=== PATIENT | male | born 1940 | race Caucasian/White ===

== ENCOUNTER 2020-09-25 16:28 | Emergency (ER) | payer MEDICARE ==
[~2020-09-25] VITALS: Ht 165.1 cm; Wt 83.9 kg
[~2020-09-25 16:28] MED LIST: FLOMAX0.4 MG PO; HYDROCODON-ACE1 EAC7 PO; PROSCAR 5MG TABL5 MG PO
[2020-09-25] MEDS ORDERED: FLEXERIL PO (17:29)
[2020-09-25 17:38] VITALS: BP 149/79
== END 2020-09-25 17:39 | disposition home or self-care (01) ==
LOC: M.ERS 16:28
DX: T83.098A Other mechanical complication of other urinary catheter, initial encounter (principal); M62.830 Muscle spasm of back; M54.41 Lumbago with sciatica, right side; N40.0 Benign prostatic hyperplasia without lower urinary tract symptoms; Z90.49 Acquired absence of other specified parts of digestive tract; Z88.5 Allergy status to narcotic agent; Z88.8 Allergy status to other drugs, medicaments and biological substances; Y84.8 Other medical procedures as the cause of abnormal reaction of the patient, or of later complication, without mention of misadventure at the time of the procedure; Y92.89 Other specified places as the place of occurrence of the external cause

== ENCOUNTER → 2020-10-22 | Outpatient (CLI) | payer MEDICARE ==
[~2020-10-22] MED LIST changes: +FLEXERIL PO
== END ==
LOC: M.LAB 10:42
PROVIDERS: ATTEND Urology
DX: Z01.812 Encounter for preprocedural laboratory examination (principal); Z20.822 Contact with and (suspected) exposure to COVID-19

== ENCOUNTER → 2020-10-27 | Day surgery (SDC) | payer MEDICARE ==
--- NOTE | ~2020-10-27 | OP ---
[address] [address] OPERATIVE REPORT Name: ANGELICA ADORNO Room: [facility].#: [id number] Admission: 10/27/20 Attend Phys: Enrico Kim III Discharge: Date of : 40 Report #: [id number] THIS REPORT FOR: cc: FAM - No family physician/PCP FAM - No family physician/PCP ~ João Morales III, MD PROCEDURE: Cystoscopy with suprapubic tube placement. PREOPERATIVE DIAGNOSIS: Urinary retention. POSTOPERATIVE DIAGNOSIS: Urinary retention. SURGEON: João Morales MD ANESTHESIA: General. 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 DESCRIPTION OF PROCEDURE: After informed consent was obtained, the patient was brought to the operating room, was placed supine on the operating table. General anesthesia was induced and airway was secured. Preoperative antibiotics were administered. The patient's lower abdomen and external genitalia were then prepped and draped in standard sterile fashion. A time-out was taken to verify the correct patient and procedure. Flexible cystoscope was introduced into the bladder, which was notable for some bullous edema along the trigone and dome consistent with catheter-related trauma. The prostatic urethra was examined and notable for severe trilobar prostatic hypertrophy. There did not appear to be any other concerning tumors, areas of erythema, foreign bodies, or calculi. The bladder dome was examined and using a 14-gauge Angiocath needle, the bladder was aspirated in a position 3 fingerbreadths above the pubic bone. The introducer was removed and a Super Stiff guidewire was advanced through the Angiocath and seen to curl within the bladder under direct vision. The Angiocath was removed and a 30-Estonian NephroMax balloon was advanced over the Super Stiff wire and was seen within the bladder lumen. Balloon was inflated and then the access sheath was advanced over the dilating balloon. The dilating balloon was deflated and a 20-Estonian Councill tip catheter was then advanced through the sheath and into the bladder. 10 mL of sterile water was instilled into the catheter balloon. The catheter was brought to rest along the bladder dome. The access sheath was cut and removed. The suprapubic tube was then secured in place using a 2-0 nylon suture. Local anesthesia using 0.5% Marcaine [place] [address] OPERATIVE REPORT Name: ANGELICA ADORNO Room: [facility]#: [id number] Admission: 10/27/20 Attend Phys: Enrico Kim III Discharge: Date of : 40 Report #: [id number] sterile dressing was applied. The patient was then awoken from anesthesia and taken to PACU in stable condition. There were no immediate complications. By: 1125 [id number] Morales III, MD /eugene
[2020-10-27 09:20] LABS: HEMOGLOBIN 12.2 gm/dL (14.0-18.0); MCHC 33.9 g/dL (28.0-37.0); MCV 88.5 fL (80.0-100.0); MPV 7.4 fl. (7.2-11.1); RBC 4.07 mil/uL (4.50-6.00); RDW-CV 15.4 % (10.5-14.5); WBC 6.1 thou/uL (4.0-11.0)
[2020-10-27 09:29] LABS: CALCIUM 9.1 mg/dL (8.5-10.1); CREATININE 1.2 mg/dL (0.6-1.3); POTASSIUM 4.3 mmol/L (3.5-5.1)
[2020-10-27 09:34] LABS: ALBUMIN 3.7 g/dL (3.4-5.0); TOTAL BILIRUBIN 0.7 mg/dL (<0.1-1.0); TOTAL PROTEIN 7.3 g/dL (6.4-8.2)
--- NOTE | 2020-10-27 13:04 | EKG ---
[place] [address] ELECTROCARDIOGRAM REPORT Name: ANGELICA ADORNO Room: [facility]#: [id number] Admission: 10/27/20 Attend Phys: João Morales III Discharge: Date of : 40 Date of Service: 10/27/20919 Report #: [id number] THIS REPORT FOR: //name// [facility] Test Date: 2020-10-27 Test Time: 09:20:39 Pat Name: ANGELICA ADORNO Department: Room: Gender: Frame Wirer: : 1940 Requested By: João Morales Order Number: [id number] Whit MD: Michael Morris Measurements Intervals [place] Rate: 61 P: 33 WV: 148 QRS: -20 QRSD: 150 T: 123 QT: 450 QTc: 454 Interpretive Statements Sinus rhythm Left bundle branch block Compared to ECG 09/10/2020 14:10:03 Sinus arrhythmia no longer present Electronically Signed On 10-27-2020 13:04:19 CDT by Michael Morris [email or web address] <ELECTRONICALLY SIGNED> By: Michael Morris MD, [facility] 10/27/20 1304 9 9 Michael Morris MD, [facility] /EPI
== END | disposition home or self-care (01) ==
LOC: M.SUR 05:20
PROVIDERS: ATTEND Urology
DX: R33.9 Retention of urine, unspecified (principal); R10.9 Unspecified abdominal pain; N40.0 Benign prostatic hyperplasia without lower urinary tract symptoms; Z98.890 Other specified postprocedural states; Z79.899 Other long term (current) drug therapy; Z90.49 Acquired absence of other specified parts of digestive tract

== ENCOUNTER 2020-10-31 03:22 | Emergency (ER) | payer MEDICARE ==
[~2020-10-31] VITALS: Ht 165.1 cm; Wt 80.3 kg
[2020-10-31 04:15] VITALS: BP 155/61
== END 2020-10-31 04:15 | disposition home or self-care (01) ==
LOC: M.ERS 03:22
DX: T83.098A Other mechanical complication of other urinary catheter, initial encounter (principal); N40.0 Benign prostatic hyperplasia without lower urinary tract symptoms; Z88.5 Allergy status to narcotic agent; Z88.8 Allergy status to other drugs, medicaments and biological substances; Z90.49 Acquired absence of other specified parts of digestive tract; Y84.8 Other medical procedures as the cause of abnormal reaction of the patient, or of later complication, without mention of misadventure at the time of the procedure; Y92.89 Other specified places as the place of occurrence of the external cause

== ENCOUNTER 2020-12-28 20:14 | Inpatient (IN) | payer MEDICARE ==
[~2020-12-28] VITALS: Ht 152.4 cm; Wt 76.6 kg
[2020-12-28 20:21] VITALS: BP 150/58
[2020-12-28 20:45] LABS: HEMATOCRIT 41.7 % (42.0-52.0); HEMOGLOBIN 14.9 gm/dL (14.0-18.0); MCH 30.1 pg (26.0-34.0); MCHC 35.7 g/dL (28.0-37.0); MCV 84.3 fL (80.0-100.0); MPV 7.8 fl. (7.2-11.1); NUCLEATED RBCS 0 /100WBC; PLATELET COUNT* 213 thou/uL (150-400); RBC 4.95 mil/uL (4.50-6.00); RDW-CV 13.7 % (10.5-14.5); WBC 5.6 thou/uL (4.0-11.0)
[2020-12-28 20:53] LABS: CALCIUM 8.8 mg/dL (8.5-10.1); CREATININE 1.7 mg/dL (0.6-1.3); POTASSIUM 3.4 mmol/L (3.5-5.1)
[2020-12-28 21:01] LABS: ABSOLUTE EOSINOPHILS 0.1 thou/uL (0.0-0.7); ABSOLUTE LYMPHOCYTES 0.3 thou/uL (0.8-5.3); ABSOLUTE MONOCYTES 0.1 thou/uL (0.0-1.2); ABSOLUTE NEUTROPHILS 5.2 thou/uL (1.6-8.1); PLATELET ESTIMATE ADEQUATE
[2020-12-28 21:02] LABS: INR 1.1; PROTIME 11.7 Seconds (9.20-11.50)
[2020-12-28 21:04] LABS: ALBUMIN 3.2 g/dL (3.4-5.0); MAGNESIUM 2.3 mg/dL (1.8-2.4); TOTAL BILIRUBIN 0.8 mg/dL (<0.1-1.0); TOTAL PROTEIN 7.3 g/dL (6.4-8.2)
[2020-12-28 23:31] LABS: URINE BILIRUBIN NEGATIVE (Negative); URINE BLOOD 3+ (Negative); URINE CLARITY SL CLOUDY; URINE COLOR YELLOW; URINE GLUCOSE-RANDOM NEGATIVE (Negative); URINE KETONES 1+ (Negative); URINE LEUKOCYTES-REFLEX 1+ (Negative); URINE PROTEIN 3+ (Negative); URINE SPECIFIC GRAVITY 1.025 (1.005-1.030)
[2020-12-28 23:32] LABS: URINE NITRITE-REFLEX POSITIVE (Negative)
[2020-12-29] VITALS (7 sets, daily range): BP systolic 93–167; BP diastolic 37–64
[2020-12-29 00:16] LABS: CASTS None Seen /LPF (None Seen); SQUAMOUS 0-3 Few /LPF (0-3)
[2020-12-29 00:18] LABS: URINE RBC >20 Many /HPF (0-2)
[2020-12-29 00:19] LABS: AMORPHOUS URATES Moderate /LPF (None Seen); BACTERIA-REFLEX >30 Many /HPF (None Seen)
--- NOTE | 2020-12-29 06:14 | NUR ---
PT DAUGHTER ---- PIERCE ADORNO [phone]
--- NOTE | 2020-12-29 12:32 | EKG ---
[place] [address] ELECTROCARDIOGRAM REPORT Name: TILAANGELICA Room: [place] [address] ADM IN ..#: [id number] Admission: 12/28/20 Attend Phys: Saba Reyez Discharge: Date of : 40 Date of Service: 12/28/202024 Report #: [id number] THIS REPORT FOR: //name// [facility] ED Test Date: 2020-12-28 Test Time: 20:25:48 Pat Name: ANGELICA ADORNO Department: Room: [facility] Gender: M Observer Helper: DANIELLE : 1940 Requested By: Lindsay See Order Number: [id number] MD: Michael Morris Measurements Intervals [place] Rate: 88 P: 43 MI: 147 QRS: -19 QRSD: 149 T: 113 QT: 383 QTc: 464 Interpretive Statements Sinus rhythm Probable left atrial enlargement Left bundle branch block Compared to ECG 10/27/2020 09:20:39 No significant changes Electronically Signed On 12-29-2020 12:32:02 CDT by Michael Morris [email or web address] <ELECTRONICALLY SIGNED> By: Michael Morris MD, [facility] 12/29/20 1232 24 24 Michael Morris MD, [facility] /EPI
--- NOTE | 2020-12-29 14:05 | NUR ---
PT GIVEN CLEAR LIQUID LUNCH TRAY AND REPOSITIONED HIMSELF IN BED. PT SWEATING, NO FEVER. PT DENIES ANY FURTHER CURRENT NEEDS AT THIS TIME.
--- NOTE | 2020-12-29 17:13 | NUR ---
PT'S DAUGHTER, PIERCE ADORNO, GIVEN UPDATE ON PT'S STATUS OVER PHONE AT THIS TIME.
--- NOTE | 2020-12-29 18:15 | NUR ---
er admit to rm 200 via bed telephone report given prior to arrival patient oriented to rm and cqall light denies pain
[2020-12-30 00:09] VITALS: BP 149/62
[2020-12-30 03:07] VITALS: BP 139/60
--- NOTE | 2020-12-30 03:46 | NUR ---
PT WANTS TO GET UP AND WALK AROUND, REMINDED HIM SEVERAL TIMES WE CANNOT LEAVE THE ROOM. HE STANDS UP AT BEDSIDE AND GETS TIRED QUICKLY, HE IS A UP WITH 1 ASSIST. HE IS NOW ON 2LO2. ON ROOM AIR HE WAS 85-88% ON 2L AROUND 93%. HE IS ALERT AND ORIENTED. 250 ML OF DARK YELLOW URINE OUT OF PACHECO THIS MORNING. NO REPORTS OF ANY PAIN, NAUSEA OR VOMITING. HE STATED HE FEELS IF HE IS GETTING WORSE. I ENCOURAGED HIM TO KEEP HEAD ELEVATED
[2020-12-30 05:52] LABS: HEMATOCRIT 38.6 % (42.0-52.0); HEMOGLOBIN 13.8 gm/dL (14.0-18.0); MCH 29.7 pg (26.0-34.0); MCHC 35.7 g/dL (28.0-37.0); MCV 83.1 fL (80.0-100.0); RBC 4.65 mil/uL (4.50-6.00); RDW-CV 14.1 % (10.5-14.5); WBC 6.4 thou/uL (4.0-11.0)
[2020-12-30 06:09] LABS: CALCIUM 8.1 mg/dL (8.5-10.1); CREATININE 1.2 mg/dL (0.6-1.3); POTASSIUM 3.5 mmol/L (3.5-5.1)
[2020-12-30 08:00] VITALS: BP 129/65
[2020-12-30 12:27] VITALS: BP 113/59
--- NOTE | 2020-12-30 13:27 | NUR ---
Pt is A&O. Resides at home with dtr. Independent. No DME. No hx of HH or SNF. Covid positive. On 2L. Anticipate dc tomorrow, wean o2.
[2020-12-30 16:17] VITALS: BP 123/64
[2020-12-30 23:52] VITALS: BP 128/71
[2020-12-31 04:11] VITALS: BP 143/63
[2020-12-31 04:49] LABS: HEMATOCRIT 38.8 % (42.0-52.0); HEMOGLOBIN 13.7 gm/dL (14.0-18.0); MCH 29.5 pg (26.0-34.0); MCHC 35.2 g/dL (28.0-37.0); MCV 83.7 fL (80.0-100.0); RBC 4.64 mil/uL (4.50-6.00); RDW-CV 13.8 % (10.5-14.5); WBC 7.6 thou/uL (4.0-11.0)
[2020-12-31 05:09] LABS: APTT 25.2 Seconds (25.0-31.3); INR 1.1; PROTIME 11.9 Seconds (9.20-11.50)
[2020-12-31 05:14] LABS: CALCIUM 8.5 mg/dL (8.5-10.1); CREATININE 1.1 mg/dL (0.6-1.3); POTASSIUM 3.5 mmol/L (3.5-5.1)
--- NOTE | 2020-12-31 06:25 | NUR ---
PATIENT SLEPT MOST OF THE NIGHT. IV REMAINS SALINE LOCKED. PATIENT WAS ON 1L MOST OF THE NIGHT BUT DROPPED DOWN TO 88/90 AND IS BACK ON 2L OF OXYGEN. PATIENT REMAINS ON COVID PRECAUTIONS. WILL CONTINUE TO MONITOR.
[2020-12-31 12:00] VITALS: BP 147/61
[2020-12-31] MEDS ORDERED: DEXAMETHASONE6 MG PO (12:15)
[2020-12-31] MEDS ORDERED: LEVOFLOXACIN500 MG PO (12:15)
--- NOTE | 2020-12-31 12:22 | NUR ---
Anticipate dc to home today, continue to wean o2, currently on .5L.
[2020-12-31 14:05] VITALS: BP 147/61
--- NOTE | 2020-12-31 15:19 | NUR ---
RECEIVED REPORT AROUND 0715. ASSUMED CARE. VS AND ASSESSMENT CHARTED. IV INTACT LEFT AC. HEART MONITOR ATTACHED AT SR WITH BBB THIS AM. MEDS GIVEN PER OCT. HOURLY ROUNDING PERFORMED. NO PAIN THIS AM. PT UP TO CHAIR THIS AM. HAD AN EPISODE OF DIARRHEA THIS AM. PACHECO INTACT. SUPRAPUBIC. REST AND EXERCISE DONE. NO O2 REQUIREMENTS. DISCHARGE ORDERS RECEIVED. IV TAKEN OUT. HEART MONITOR OFF. DISCHARGE PAPERWORK GONE OVER WITH PT. COMMUNICATED UNDERSTANDING. PT DRESSED. CATHETER IN PLACE D/C WITH. PT LEFT UNIT VIA WHEEL CHAIR AND ALL BELONGINGS WITH NURSING STAFF AT 1510.
== END 2020-12-31 15:10 | disposition home or self-care (01) | DRG 177 ==
LOC: M.ERS 20:14 → M.TBA-ER 22:47 → M.2W 12-29 18:15
PROVIDERS: Emergency Medicine; ADMIT Internal Medicine; ATTEND Internal Medicine
PROC: XW033E5 Introduction of Remdesivir Anti-infective into Peripheral Vein, Percutaneous Approach, New Technology Group 5 (ICD-10-PCS; principal; 2020-12-30)
DX: U07.1 COVID-19 (principal); J96.01 Acute respiratory failure with hypoxia; J12.82 Pneumonia due to coronavirus disease 2019; N40.0 Benign prostatic hyperplasia without lower urinary tract symptoms; Z90.49 Acquired absence of other specified parts of digestive tract; Z88.6 Allergy status to analgesic agent; Z88.8 Allergy status to other drugs, medicaments and biological substances

== ENCOUNTER 2021-03-03 11:10 | Observation (INO) | payer MEDICARE ==
[~2021-03-03] VITALS: Ht 167.6 cm; Wt 84.4 kg
[~2021-03-03 11:10] MED LIST changes: +DEXAMETHASONE6 MG PO; +LEVOFLOXACIN500 MG PO
[2021-03-03 11:39] LABS: ABSOLUTE BASOPHILS 0.1 thou/uL (0.0-0.2); ABSOLUTE EOSINOPHILS 0.3 thou/uL (0.0-0.7); ABSOLUTE LYMPHOCYTES 1.1 thou/uL (0.8-5.3); ABSOLUTE MONOCYTES 0.6 thou/uL (0.0-1.2); ABSOLUTE NEUTROPHILS 5.4 thou/uL (1.6-8.1); EOSINOPHILS 3.5 %; HEMATOCRIT 35.7 % (42.0-52.0); HEMOGLOBIN 12.4 gm/dL (14.0-18.0); LYMPHOCYTES 14.2 %; MCH 31.3 pg (26.0-34.0); MCHC 34.7 g/dL (28.0-37.0); MCV 90.2 fL (80.0-100.0); MONOCYTES 8.4 %; MPV 8.8 fl. (7.2-11.1); NUCLEATED RBCS 0 /100WBC; PLATELET COUNT* 232 thou/uL (150-400); POLYS 72.9 %; RBC 3.96 mil/uL (4.50-6.00); RDW-CV 15.3 % (10.5-14.5); WBC 7.4 thou/uL (4.0-11.0)
[2021-03-03 11:47] LABS: CALCIUM 8.7 mg/dL (8.5-10.1); CREATININE 1.8 mg/dL (0.6-1.3); POTASSIUM 3.8 mmol/L (3.5-5.1)
[2021-03-03 11:57] LABS: ALBUMIN 3.8 g/dL (3.4-5.0); MAGNESIUM 1.9 mg/dL (1.8-2.4); TOTAL BILIRUBIN 0.8 mg/dL (<0.1-1.0)
[2021-03-03 14:21] VITALS: BP 190/54
[2021-03-03 14:30] VITALS: BP 176/77
[2021-03-03 19:01] VITALS: BP 184/67
[2021-03-04 07:58] VITALS: BP 166/77
[2021-03-04 12:11] VITALS: BP 170/79
--- NOTE | 2021-03-04 12:47 | EKG ---
[place] [address] ELECTROCARDIOGRAM REPORT Name: ANGELICA ADORNO Room: [address] M.R.#: [id number] Admission: 03/03/21 Attend Phys: Maximo Boston Discharge: Date of : 40 Date of Service: 03/03/21 1119 Report #: [id number] THIS REPORT FOR: //name// [facility] ED Test Date: 2021-03-03 Test Time: 11:19:02 Pat Name: ANGELICA ADORNO Department: Room: [address] Gender: M Public Message Service Supervisor: DSShona : 1940 Requested By: Jason Hendrix Order Number: [id number] Whit MD: Michael Morris Measurements Intervals [place] Rate: 33 P: AR: QRS: 20 QRSD: 358 T: 7 QT: 678 QTc: 503 Interpretive Statements Sinus rhythm with complete AV block and a wide QRS escape Right bundle branch block reflected in escape rhythm Baseline wander in lead(s) II,III,aVF Compared to ECG 12/28/2020 20:25:48 AV block, complete (third-degree) now present Right bundle-branch block now present Left bundle-branch block no longer present Electronically Signed On 03-04-2021 12:47:30 CDT by Michael Morris [email or web address] <ELECTRONICALLY SIGNED> By: Michael Morris MD, [facility] 03/04/21 1247 1119 1119 Michael Morris MD, [facility] /EPI
--- NOTE | 2021-03-04 13:03 | EKG ---
[place] [address] ELECTROCARDIOGRAM REPORT Name: ANGELICA ADORNO Room: [address] M.R.#: [id number] Admission: 03/03/21 Attend Phys: Maximo Boston Discharge: Date of : 40 Date of Service: 03/04/21 1129 Report #: [id number] THIS REPORT FOR: //name// [facility] Test Date: 2021-03-04 Test Time: 11:29:25 Pat Name: ANGELICA ADORNO Department: Room: [address] Gender: M Supervisor Finishing Room: : 1940 Requested By: Jonathan Wooten Order Number: [id number] Whit MD: Michael Morris Measurements Intervals [place] Rate: 84 P: 54 ME: 204 QRS: -68 QRSD: 168 T: 101 QT: 455 QTc: 538 Interpretive Statements Atrial-ventricular dual-paced rhythm No further analysis attempted due to paced rhythm Baseline wander in lead(s) V4 Compared to ECG 03/04/2021 11:27:10 Atrial-sensed ventricular-paced complex(es) or rhythm no longer present Electronically Signed On 03-04-2021 13:03:38 CDT by Michael Morris [email or web address] <ELECTRONICALLY SIGNED> By: Michael Morris MD, [facility] 03/04/21 1303 1129 1129 Michael Morris MD, [facility] /EPI
--- NOTE | 2021-03-04 13:03 | EKG ---
[place] [address] ELECTROCARDIOGRAM REPORT Name: ANGELICA ADORNO Room: [address] M.R.#: [id number] Admission: 03/03/21 Attend Phys: Maximo Boston Discharge: Date of : 40 Date of Service: 03/04/21 1127 Report #: [id number] THIS REPORT FOR: //name// [facility] Test Date: 2021-03-04 Test Time: 11:27:10 Pat Name: ANGELICA ADORNO Department: Room: [address] Gender: M Rectifying Attendant: : 1940 Requested By: Jonathan Wooten Order Number: [id number] Whit MD: Michael Morris Measurements Intervals [place] Rate: 69 P: 43 LA: 204 QRS: -66 QRSD: 162 T: 103 QT: 475 QTc: 509 Interpretive Statements Atrial-sensed ventricular-paced rhythm No further analysis attempted due to paced rhythm Baseline wander in lead(s) V4 Compared to ECG 03/03/2021 11:19:02 AV block, complete (third-degree) no longer present Right bundle-branch block no longer present Electronically Signed On 03-04-2021 13:03:26 CDT by Michael Morris [email or web address] <ELECTRONICALLY SIGNED> By: Michael Morris MD, [facility] 03/04/21 1303 1127 1127 Michael Morris MD, [facility] /EPI
[2021-03-04 13:05] VITALS: BP 170/79
[2021-03-04] MEDS ORDERED: COZAAR 50 MG TA50 M1 PO (13:05)
[2021-03-04 13:19] VITALS: BP 170/79
[2021-03-04 14:19] VITALS: BP 170/79
--- NOTE | 2021-03-04 17:00 | 2DMMODE ---
[place] [address] 2 D/M-MODE ECHOCARDIOGRAM Name: ANGELICA ADORNO Room: [address] Tony Guthrie#: [id number] Admission: 03/03/21 Attend Phys: Maximo Boston Discharge: 03/04/21 Date of : 40 Date of Service: 03/04/21 1659 Report #: [id number] THIS REPORT FOR: cc: Bibiana Salas Linda J. DO Liston, Michael J. MD [facility] ~ APPROVED REPORT Study performed: 03/04/2021 11:24:41 EXAM: Comprehensive 2D, Doppler, and color-flow Echocardiogram Patient Location: In-Patient Room #: 004 Status: routine BSA: 1.94 HR: 73 bpm BP: 189/51 mmHg Rhythm: NSR Other Information Study Quality: Good Indications Murmur 2D Dimensions IVSd: 12.17 (7-11mm) LVOT Diam: 20.06 (18-24mm) LVDd: 45.66 mm PWd: 11.54 (7-11mm) Ascending Ao: 34.95 (22-36mm) LVDs: 26.74 (25-40mm) Aortic Root: 29.99 mm Volumes Left Atrial Volume (Systole) LA ESV Index: 29.60 mL/m2 Aortic Valve AoV Peak Bimal.: 2.52 m/s AO Peak Gr.: 25.36 mmHg LVOT Max P.00 mmHg AO Mean Gr.: 14.25 mmHg LVOT Mean P.20 mmHg LVOT Max V: 1.22 m/s AO V2 VTI: 46.71 cm LVOT Mean V: 0.83 m/s CRISTEL (VTI): 1.83 cm2 LVOT V1 VTI: 26.98 cm AI Estill: 2.50 m/s2 [place] [address] 2 D/M-MODE ECHOCARDIOGRAM Name: ANGELICA ADORNO Room: [address] [place]#: [id number] Admission: 03/03/21 Attend Phys: Maximo Boston Discharge: 03/04/21 Date of : 40 Date of Service: 03/04/21 1659 Report #: [id number] AI PHT: 489.13 ms Mitral Valve E/A Ratio: 0.70 MV Decel. Time: 292.14 ms MV E Max Bimal.: 0.81 m/s MV PHT: 84.72 ms MVA (PHT): 2.60 cm2 TDI E/Lateral E': 10.13 E/Medial E': 13.50 Medial E' Bimal.: 0.06 m/s Lateral E' Bimal.: 0.08 m/s Pulmonary Valve PV Peak Bimal.: 1.12 m/s PV Peak Gr.: 5.06 mmHg Tricuspid Valve RAP Estimate: 5.00 mmHg TR Peak Gr.: 60.81 mmHg RVSP: 65.00 mmHg PA Pressure: 65.00 mmHg Left Ventricle The left ventricle is normal size. Left ventricular systolic dyssynergy noted consistent with paced rhythm. Mild concentric left ventricular hypertrophy. The left ventricular systolic function is normal. LVEF is 55-60%. Grade I - abnormal relaxation pattern. Right Ventricle Right ventricle is mildly dilated. The right ventricular systolic function is normal. Pacemaker lead is present in the right ventricle. Atria The left atrium size is normal. Right atrium is mildly dilated. Aortic Valve Mild aortic valve sclerosis. Mild aortic regurgitation. Mild aortic stenosis. Mitral Valve The mitral valve is normal in structure. Moderate mitral regurgitation. No evidence of mitral valve stenosis. Tricuspid Valve The tricuspid valve is normal in structure[place] [address] 2 D/M-MODE ECHOCARDIOGRAM Name: ANGELICA ADORNO Room: [address] Tony LandaRHannah#: [id number] Admission: 03/03/21 Attend Phys: Maximo Boston Discharge: 03/04/21 Date of : 40 Date of Service: 03/04/21 1659 Report #: [id number] regurgitation. Moderate to severe tricuspid regurgitation. The RVSP is 70 mmHg. Pulmonic Valve The pulmonary valve is normal in structure. There is no pulmonic valvular regurgitation. Great Vessels The aortic root is normal in size. IVC is dilated and collapses >50% with inspiration. Pericardium There is no pericardial effusion. <Conclusion> The left ventricle is normal size. Mild concentric left ventricular hypertrophy. The left ventricular systolic function is normal. LVEF is 55-60%. Grade I - abnormal relaxation pattern. Left ventricular systolic dyssynergy noted consistent with paced rhythm. Pacemaker lead is present in the right ventricle. Right ventricle is mildly dilated. Right atrium is mildly dilated. Mild aortic valve sclerosis. Mild aortic regurgitation. Mild aortic stenosis. Moderate mitral regurgitation. Mild tricuspid regurgitation. Moderate to severe tricuspid regurgitation. The RVSP is 70 mmHg. <ELECTRONICALLY SIGNED> By: Jonathan Wooten MD, FACC 03/04/21 1659 58 58 Jonathan Wooten MD, FACC /INF
--- NOTE | 2021-03-04 17:17 | CARD ---
[address] [address] CARDIAC CATH REPORT Name: ANGELICA ADORNO Room: [address] Tony M.R.#: [id number] Admission: 03/03/21 Attend Phys: Jerome Peter Discharge: 03/04/21 Date of : 40 Report #: [id number] THIS REPORT FOR: cc: Bibiana Salas Linda J. DO Liston, Michael J. MD [facility] ~ APPROVED REPORT Study performed: 03/03/2021 15:32:09 Patient Status: Out-Patient Room #: Event Personnel: Jonathan Wooten [employer] Director, Brie Montoya RN RN, Lillian Cross RTR Scrub, Rios Negron RTR Monitor Exam: Generator Change for a Dual Chamber Permanent Pacemaker Indications: Complete Heart Block The patient is a 80 year-old male with a history of . Conscious Sedation Fentanyl 25 mcg Versed 1 mg Implanted Devices: Dual Chamber Permanent Pacemaker, [place] S DR RUDY De La [place]re, Ser# [id number], V-Lead 5076-52, Ser# [id number], A-Lead 5076-45, Ser# [id number] Procedure The patient underwent informed consent. We discussed the details of the procedure including the risks, which include, but not limited to bleeding, infection, vascular damage, cardiac perforation, and pneumothorax. He understood these risks and was willing to proceed. As such, he was brought to the EP/Cardiac Catheterization laboratory in a fasting and sedated state and prepped and draped in a sterile fashion, received IV antibiotics prior to initiation of the procedure and a venogram was performed showing patency of the left axillary vein. The patient underwent conscious sedation, with no related complications. The patient was brought to the EP/Cardiac Catheterization laboratory and the left chest and shoulder were prepped and draped in a sterile manner. During this case, Fluoroscopy and visipaque 10cc were used for imaging. IV conscious sedation was used [place] [address] CARDIAC CATH REPORT Name: ANGELICA ADORNO [address] [id number] Admission: 03/03/21 Attend Phys: Jerome Peter Discharge: 03/04/21 Date of : 40 Report #: [id number] monitoring and was performed in the presence of a registered nurse who was an independent trained observer other than the physician performing the procedure. The left subclavian region was infiltrated with 2% Lidocaine subcutaneous anesthesia. A transverse incision was made in the left upper chest cavity. The subcutaneous pocket was formed via blunt dissection. Percutaneous venous access was achieved and an introducer sheath was inserted into the left Subclavian vein. Sheaths were positions using the modified Seldinger technique Through the introducer sheaths the atrial and ventricular lead wires were positioned in the right atrial appendage and right ventricular apex respectively. Utilizing fluoroscopic guidance, the atrial and ventricular lead wires were advanced over the wires and positioned in the right atria and right ventricle respectively. Capturing and sensing thresholds were verified. The ventricular lead was interrogated and Electrode Parameters P Wave: 3.4 mV R Wave: 12.4 mV Atrial Threshold: 1.5 V at 0.40 ms Ventricular Threshold: 1.0 V at 0.40 ms Atrial Resistance: 627 ohms Ventricular Resistance: 703 ohms Dual Chamber The atrial and ventricular leads were then secured using 0 silk sutures. The subcutaneous pocket was irrigated with ancef antibiotic solution.The atrial and ventricular leads were attached to the appropriate receptacles on the pulse generator and set screws firmly tightened to insure adequate contact and stability. The lead and pulse generator were placed into the subcutaneous pocket. Sharp and sponge counts were confirmed to be correct. At this time the pocket was closed subcutaneously with a 2.0 Vicryl and the skin was closed with a 4.0 Vicryl. The operative site was dressed in sterile fashion with steri strips and the patient was transferred to the floor in stable condition. Complications The patient tolerated the procedure well and there were no complications associated with [place] [address] CARDIAC CATH REPORT Name: ANGELICA ADORNO Room: [address] Tony Guthrie#: [id number] Admission: 03/03/21 Attend Phys: Jerome Peter Discharge: 03/04/21 Date of : 40 Report #: [id number] 1. Complete heart block. 2. Successful placement of a dual-chamber pacemaker with atrial and ventricular lead placement. Recommendations 1. Follow-up site check in 1 week. 2. Follow-up device interrogation in 1 month. <ELECTRONICALLY SIGNED> By: Jonathan Wooten MD, [facility] 03/04/211716 16 16Micoma Wooten MD, FAC /INF
== END 2021-03-04 14:15 | disposition home or self-care (01) ==
LOC: M.ERS 11:10 → M.ICU 12:33 → M.TBA-ER 12:33 → M.ICU 12:33
PROVIDERS: Emergency Medicine Emergency Medical Services; ADMIT Internal Medicine; ATTEND Internal Medicine
DX: I44.2 Atrioventricular block, complete (principal); Z20.822 Contact with and (suspected) exposure to COVID-19; I12.9 Hypertensive chronic kidney disease with stage 1 through stage 4 chronic kidney disease, or unspecified chronic kidney disease; N18.9 Chronic kidney disease, unspecified; Z86.19 Personal history of other infectious and parasitic diseases; Z79.899 Other long term (current) drug therapy; Z96.0 Presence of urogenital implants

== ENCOUNTER → 2021-03-10 | Outpatient (CLI) | payer MEDICARE ==
[~2021-03-10] MED LIST changes: +COZAAR 50 MG TA50 M1 PO
[2021-03-10 10:58] LABS: CALCIUM 8.7 mg/dL (8.5-10.1); CREATININE 1.2 mg/dL (0.6-1.3); POTASSIUM 4.4 mmol/L (3.5-5.1)
== END ==
LOC: M.LAB 10:34
PROVIDERS: ATTEND Registered Nurse
DX: R00.1 Bradycardia, unspecified (principal)